=== PATIENT | female | born 1955 | race Caucasian/White ===

== ENCOUNTER 2018-03-17 11:34 | Inpatient (IN) | payer MEDICARE ==
[~2018-03-17] VITALS: Ht 167.6 cm; Wt 71.2 kg
[~2018-03-17 11:34] MED LIST: ALDACTONE25 MG PO; ASPIRIN325 MG PO; CARAFATE1 GM PO; COLESTIPOL HCL1 GM PO; DICYCLOMINE HCL20 MG PO; DIFLUCAN100 MG; ERYTHROMYCIN500 MG PO; GABAPENTIN100 MG PO; MIDODRINE HCL2.5 MG PO; NEXIUM40 MG PO; NORCO 10-325 T1 EACH PO; OMEPRAZOLE40 MG PO; PANTOPRAZOLE SO40 MG PO; PROMETHAZINE HC25 M1 PO; REGLAN10 MG PO; SERTRALINE HCL50 MG PO; SUCRALFATE1 GM PO; XANAX0.25 MG PO; XOPENEX HFA15 G1 INH; Z.0.NEXIUM40 MG PO; Z.0.REGLAN10 MG PO; ZOFRAN ODT4 MG PO; ZOLOFT50 MG PO
--- OUTSIDE RECORDS SUMMARY | 2018-03-17 11:38 | XMS REPORT | Clinical Summary ---
Author Author MIRANDA [employer] [facility] [employer] [facility] Address Unknown Phone Unavailable Care Team Providers Care Programming Intern Name Role Phone PCP Unavailable Allergies Active Allergy Reactions Severity Noted Date Comments Clindamycin Nausea And Vomiting 09/27/2017 Codeine Nausea And Vomiting 09/27/2017 Current Medications Prescription Sig. Disp. Refills Start End Date Status Date esomeprazole (NEXIUM) 20 Take 40 mg by mouth 2 Active MG capsule (two) times daily . dicyclomine (BENTYL) 10 Take 10 mg by mouth 4 Active MG capsule (four) times daily before meals and nightly. metoclopramide HCl Take 10 mg by mouth 4 Active (REGLAN) 10 MG tablet (four) times daily as needed for Nausea. sucralfate (CARAFATE) 1 Take 1 g by mouth 4 Active gram tablet (four) times daily. promethazine (PHENERGAN) Take 25 mg by mouth every Active 25 MG tablet 6 (six) hours as needed for Nausea. sertraline (ZOLOFT) 50 MG Take 50 mg by mouth Active tablet nightly. gabapentin (NEURONTIN) Take 100 mg by mouth Active 100 MG capsule nightly. ondansetron (ZOFRAN) 8 MG Take by mouth every 8 Active tablet (eight) hours as needed for Nausea. diphenoxylate-atropine Take 1 tablet by mouth 4 Active (LOMOTIL) 2.5-0.025 mg (four) times daily as per tablet needed for Diarrhea. topiramate (TOPAMAX) 25 Take 25 mg by mouth 2 Active MG capsule (two) times daily as needed. Active Problems Not on file Encounters Date Type Specialty Care Team Description 09/27/2017 Hospital Gastroenterology Frank Rey MD Encounter 09/27/2017 Anesthesia Gastroenterology Ricki Valle Event MD 09/27/2017 Procedure Pass Gastroenterology 09/27/2017 Surgery Gastroenterology Frank Rey MD SIGMOIDOSCOPY, BIOPSY after 03/16/2017 Social History Tobacco Use Types Packs/Day Years Used Date Never Smoker Smokeless Tobacco: Never Used Alcohol Use Drinks/Week oz/Week Comments No Sex Assigned at Date Recorded Not on file Last Filed Vital Signs Vital Sign Reading Time Taken Blood Pressure 133/69 09/27/2017 11:15 AM [employer] Pulse 74 09/27/2017 10:45 AM [employer] Temperature 36.3 C (97.3 F) 09/27/2017 11:15 AM [employer] Respiratory Rate 18 09/27/2017 11:15 AM [employer] Oxygen Saturation 100% 09/27/2017 10:45 AM [employer] Inhaled Oxygen - - Concentration Weight 67.1 kg (148 lb) 09/27/2017 10:14 AM [employer] Height 167.6 cm (5' 6") 09/27/2017 9:54 AM [employer] Body Mass Index 23.89 09/27/2017 10:14 AM [employer] Plan of Treatment Not on file Procedures Procedure Name Priority Date/Time Associated Diagnosis Comments UPPER ENDOSCOPY,BIOPSY 09/27/2017 Abdominal pain, 10:30 AM [employer] unspecified abdominal location Special Needs (LINEAR SCOPE) UPPER ENDOSCOPY,FNA 09/27/2017 Abdominal pain, W/ULTRASOUND 10:30 AM [employer] unspecified abdominal location Special Needs (LINEAR SCOPE) SIGMOIDOSCOPY,BIOPSY 09/27/2017 Abdominal pain, 10:30 AM [employer] unspecified abdominal location Special Needs (LINEAR SCOPE) after 03/16/2017 Results * REPORT OF PROCEDURE - ENDOSCOPY URL (09/27/2017 11:37 AM) Only the most recent of 2 results within the time period is included. * Tissue Exam (09/27/2017 10:17 AM) Component Value Ref Range Case Report Surgical Pathology Report Case: [id number] Authorizing Provider: Frank Rey MD Collected: 09/27/2017 1017 Ordering Location: [facility] Endoscopy Received: 09/27/2017 1350 Services Pathologist: Myrna Bermudez MD Specimens: A) - Duodenum, Bx Duodenum B) - Stomach, Bx Stomach C) - Large Intestine, Colon - Sigmoid, Bx Sigmoid DIAGNOSIS A. DUODENUM, BIOPSY: - DUODENAL MUCOSA WITH NO SIGNIFICANT PATHOLOGIC CHANGES - NEGATIVE FOR VILLOUS BLUNTING - NEGATIVE FOR SIGNIFICANT INCREASE OF INTRAEPITHELIAL LYMPHOCYTES B. STOMACH, BIOPSY: - CHRONIC FOCALLY ACTIVE GASTRITIS AND FEATURES SUGGESTIVE OF REACTIVE GASTOPATHY - NEGATIVE FOR HELICOBACTER PYLORI BY WARTHIN STARRY - NEGATIVE FOR METAPLASIA, DYSPLASIA AND CARCINOMA C. COLON, SIGMOID, BIOPSY: - NO SIGNIFICANT PATHOLOGIC CHANGES - NEGATIVE FOR LYMPHOCYTIC OR COLLAGENOUS COLIITIS Signing Pathologist Direct Phone Line: [phone] CPT Code(s) 00800 [id number] CLINICAL HISTORY Abdominal pain, diarrhea SPECIMEN SOURCE A. Duodenum biopsy B. Stomach biopsy C. Sigmoid colon biopsy GROSS DESCRIPTION Specimen is received in three containers of formalin all labeled with the patient's information. Part A labeled "duodenum biopsy" consists of three fragments of guerrero tissue ranging from 0.2 to 0.4 cm submitted A1. Part B labeled "stomach biopsy" consists of two fragments of guerrero tissue measuring 0.1 and 0.2 cm submitted B1. Part C labeled "sigmoid biopsy" consists of multiple fragments of guerrero tissue ranging from 0.1 and 0.3 cm submitted C1. / MICROSCOPIC DESCRIPTION A. Section shows multiple pieces of duodenal mucosa with with preserved villous architecture. There is mild submucosal congestion present. There is no significant active inflammation, pyloric metaplasia, intraepithelial lymphocytosis or malignancy. No granulomas are seen. There are plasma cells present in the lamina propria. No parasites are present. B. Performed C. Section shows pieces of unremarkable colonic mucosa with preserved crypt architecture. Specifically, no active inflammation, intraepithelial lymphocytosis or thickened subepithelial collagen band is seen. No viral inclusions are seen. No features suggestive of amyloid deposition are noted. No parasites are seen. No dysplasia or carcinoma is present. SPECIAL STUDIES The following special studies were performed on this case and the interpretation is incorporated in the diagnostic report above: The immunohistochemistry test was developed and its performance characteristics determined by [facility], Pathology Laboratory. It has not been cleared or approved by the U.S. Food and Drug Administration. The FDA has determined that such clearance or approval is not necessary. The test is used for clinical purposes. It should not be regarded as investigational or for research. This laboratory is certified under the Clinical Laboratory Improvement Amendments of 1988 (CLIA-88) as qualified to perform high complexity clinical laboratory testing. Specimen Performing Laboratory Tissue - Duodenum; Tissue [facility] - Stomach; Tissue - Large [address] [place] [address] Intestine, [place] [address] Sigmoid after 03/16/2017
--- OUTSIDE RECORDS SUMMARY | 2018-03-17 11:38 | XMS REPORT ---
Author Author [facility] Address Unknown Phone Unavailable Care Team Providers Care Swinging Cut Off Saw Operator Name Role Phone FRANK REY Unavailable Unavailable MIGUEL MALCOLM Unavailable Unavailable ARNULFO HAJI Unavailable Unavailable Problems This patient has no known problems. Allergies, Adverse Reactions, Alerts This patient has no known allergies or adverse reactions. Medications This patient has no known medications. Results Test Description Test Time Test Comments Text Results Atomic Results Result Comments TISSUE EXAM 2017-10-01 15:27:00 Surgical Pathology Report Case: [id number] Authorizing Provider: Frank Rey MD Collected: 09/27/2017 1017 Ordering Location: [facility] Endoscopy Received: 2016 1350 Services Pathologist: Myrna Bermudez MD Specimens: A) - Duodenum, Bx Duodenum B) - Stomach, Bx Stomach C) - Large Intestine, Colon - Sigmoid, Bx Sigmoid A. DUODENUM, BIOPSY: - DUODENAL MUCOSA WITH NO SIGNIFICANT PATHOLOGIC CHANGES - NEGATIVE FOR VILLOUS BLUNTING - NEGATIVE FOR SIGNIFICANT INCREASE OF INTRAEPITHELIAL LYMPHOCYTESB. STOMACH, BIOPSY: - CHRONIC FOCALLY ACTIVE GASTRITIS AND FEATURES SUGGESTIVE OF REACTIVE GASTOPATHY - NEGATIVE FOR HELICOBACTER PYLORI BY WARTHIN STARRY - NEGATIVE FOR METAPLASIA, DYSPLASIA AND CARCINOMA C. COLON , SIGMOID, BIOPSY: - NO SIGNIFICANT PATHOLOGIC CHANGES - NEGATIVE FOR LYMPHOCYTIC OR COLLAGENOUS COLIITIS Signing Pathologist Direct Phone Line: [phone] signed by Myrna Bermudez MD on 10/01/2017 at 3:27 [id number] pain, diarrheaA. Duodenum biopsy B. Stomach biopsy C. Sigmoid colon biopsy Specimen is received in three containers of formalin all labeled with the patient's information.Part A labeled "duodenum biopsy" consists of three fragments of guerrero tissue ranging from 0.2 to 0.4 cm submitted A1.Part B labeled "stomach biopsy" consists of two fragments of guerrero tissue measuring 0.1 and 0.2 cm submitted B1.Part C labeled "sigmoid biopsy" consists of multiple fragments of guerrero tissue ranging from 0.1 and 0.3 cm submitted C1. CG/bc A. Section shows multiple pieces of duodenal mucosa with with preserved villous architecture. There is mild submucosal congestion present. There is no significant active inflammation, pyloric metaplasia, intraepithelial lymphocytosis or malignancy. No granulomas are seen. There are plasma cells present in the lamina propria. No parasites are present. B. PerformedC. Section shows pieces of unremarkable colonic mucosa with preserved crypt architecture. Specifically, no active inflammation, intraepithelial lymphocytosis or thickened subepithelial collagen band is seen. No viral inclusions are seen. No features suggestive of amyloid deposition are noted. No parasites are seen. No dysplasia or carcinoma is present.The following special studies were performed on this case and the interpretation is incorporated in the diagnostic report above:The immunohistochemistry test was developed and its performance characteristics determined by [facility], Pathology Laboratory. It has not been cleared or approved by the U.S. Food and Drug Administration. The FDA has determined that such clearance or approval is not necessary. The test is used for clinical purposes. It should not be regarded as investigational or for research. This laboratory is certified under the Clinical Laboratory Improvement Amendments of 1988 (CLIA-88 ) as qualified to perform high complexity clinical laboratory testing. MRI ABDOMEN WOW [place] [address] Patient Name: ILEANA GATICA MR #: [id number] : 1955 Age/Sex: 61/F Req # : [id number] Adm Physician: Ordered by: MIGUEL MALCOLM MD Report #: [id number] Location: MRI Room/Bed: Procedure: MRI/MRI ABDOMEN WOW Exam Date: 06/23/17 Exam Time: 1620 REPORT STATUS: Signed PROCEDURE: MRI ABDOMEN W T W/O CONTRAST COMPARISON: MRI abdomen 06/06/2015. CT abdomen pelvis 2014 INDICATIONS: Abdominal pain. Right upper quadrant pain. TECHNIQUE: A comprehensive examination was performed utilizing a variety of imaging planes and imaging parameters to optimize visualization of suspected pathology. Images were obtained both before and after intravenous gadolinium infusion. CONTRAST: 6.5 ml Gadavist FINDINGS: LIVER: Unchanged pneumobilia predominantly involving left hepatic lobe, likely related to cholecystectomy and sphincterotomy. No focal lesions. PANCREAS: Normal. SPLEEN: Normal. KIDNEYS: Normal. ADRENALS: Normal. AORTA/VASCULAR: Mild atherosclerotic calcifications. RETROPERITONEUM: Normal. BOWEL/MESENTERY: Postoperative changes at the gastric fundus, consistent with fundoplication wrap. ABDOMINAL WALL: Normal. BONES: Normal. CONCLUSION: 1. No acute abnormalities identified. 2. No change in pneumobilia related to previous cholecystectomy and likely sphincterotomy. 3. Postoperative changes of the stomach consistent with a fundoplication wrap. Dictated by: Tyrel Artis M.D. on at 17:18 Electronically approved by: Tyrel Artis M.D. on 2016 at 17:18 Dictated By: TYREL ARTIS MD 17 Transcribed By: NAOMI on 06/23/171717 COPY TO: MIGUEL MALCOLM MD CT ABDOMEN/PELVIS [place] [address] Patient Name: ILEANA GATICA MR #: [id number] : 1955 Age/Sex: 61/F Req #: [id number] Adm Physician: Ordered by: ARNULFO HAJI MD Report #: [id number] Location: ER Room/Bed: Procedure: [id number] CT/CT ABDOMEN/PELVIS WO Exam Date: 06/08/17 Exam Time: 1225 REPORT STATUS: Signed PROCEDURE: CT ABDOMEN AND PELVIS WITHOUT CONTRAST TECHNIQUE: The abdomen and pelvis were scanned utilizing a multidetector helical scanner from the diaphragm to the lesser trochanter. No IV contrast was administered as per physician request. Coronal and sagittal multiplanar reformations were obtained. COMPARISON: CT abdomen and pelvis 04/29/2017. INDICATIONS: RIGHT FLANK PAIN FINDINGS: ABSENCE OF INTRAVENOUS CONTRAST DECREASES SENSITIVITY FOR DETECTION OF FOCAL LESIONS AND VASCULAR PATHOLOGY. LOWER THORAX: Normal. HEPATOBILIARY: No focal hepatic lesions. No biliary ductal dilatation. Cholecystectomy. Pneumobilia is present, minimally increased since the previous examination. SPLEEN: No splenomegaly. PANCREAS: No focal masses or ductal dilatation. ADRENALS: No adrenal nodules. KIDNEYS /URETERS: No hydronephrosis, stones, or solid mass lesions. PELVIC ORGANS/ BLADDER: Hysterectomy. No ovaries are visualized. Normal urinary bladder. PERITONEUM / RETROPERITONEUM: No free air or fluid. LYMPH NODES: No lymphadenopathy. VESSELS: Atherosclerotic calcifications. GI TRACT: No distention or wall thickening. No appendix is visualized. Postoperative changes of the stomach. Moderate amount of retained feces limit intraluminal evaluation of the colon. BONES AND SOFT TISSUES: Degenerative changes of the lumbar spine. Postoperative changes of left total hip arthroplasty. IMPRESSION: No acute abnormality of the abdomen and pelvis. Pneumobilia. Dictated by: Roxanne Whitfield M.D. on 06/08/2017 at 13:23 Electronically approved by: Roxanne Whitfield M.D. on 06/08/2017 at 13:23 Dictated By: ROXANNE WHITFIELD MD 1323 Transcribed By: NAOMI on 06/08/17 1323 COPY TO: ARNULFO HAJI MD ABDOMEN ACUTE SERIES W/PA CXR [place] [address] Patient Name: ILEANA GATICA MR #: [id number] : 1955 Age/Sex: 61/F Req #: [id number] Adm Physician: Ordered by: ARNULFO HAJI MD Report #: [id number] Location: ER Room/Bed: Procedure: [id number] DX/ABDOMEN ACUTE SERIES W/PA CXR Exam Date: 06/08/17 Exam Time: 1110 REPORT STATUS: Signed PROCEDURE : ABDOMEN ACUTE SERIES W/PA CXR COMPARISON: Small bowel follow-through . CT abdomen and pelvis 04/29/2017. Portable chest 06/03/2016. INDICATIONS: NAUSEA,DIARRHEA FINDINGS: CHEST: Scarring is present in the left lung base. Cardiomediastinal silhouette is within normal limits. No focal consolidation or parenchymal mass. No pleural effusion. No pneumothorax. BOWEL PATTERN: No air-fluid levels or pneumoperitoneum. Soft tissues: Postoperative changes in the epigastric region. Cholecystectomy clips. No abnormal calcifications. BONES: Degenerative changes of the thoracic and lumbar spine. The left hip arthroplasty. CONCLUSION: 1. No acute thoracic abnormality. 2. No evidence of bowel obstruction. Dictated by: Roxanne Whitfield M.D. on 06/08/2017 at 11:40 Electronically approved by: Roxanne Whitfield M.D. on 06/08/2017 at 11:40 Dictated By: ROXANNE WHITFIELD MD 1140 Transcribed By: NAOMI on 06/08/17 1140 COPY TO: ARNULFO HAJI MD
[2018-03-17] MEDS ORDERED: PANTOPRAZOLE 40 MG 10ML VIAL IV STA (12:03)
[2018-03-17] MEDS ORDERED: SODIUM CHLORIDE 0.9% 1000ML 1,000 ML IV STA ×2 (12:03→15:18)
[2018-03-17 12:50] LABS: BILIRUBIN,URINE NEGATIVE (NEGATIVE); CLARITY,URINE CLEAR (CLEAR); COLOR,URINE YELLOW (YELLOW); KETONES,URINE NEGATIVE (NEGATIVE); LEUKOCYTE ESTERASE ,URINE TRACE (NEGATIVE); NITRITE,URINE NEGATIVE (NEGATIVE); PROTEIN,URINE DIPSTICK NEGATIVE (NEGATIVE); URINE UROBILINOGEN 0.2 mg/dL (0.2 - 1)
[2018-03-17] MEDS: DONNATAL/LIDOCAINE/MAALOX 30 ML SUSP PO SCH ×2 (12:58→21:00)
[2018-03-17 13:16] LABS: BASOPHILS % 0.7 % (0.0-1.0); EOSINOPHILS % 0.7 % (0.0-6.0); HEMATOCRIT 40.2 % (34.2-44.1); HEMOGLOBIN 13.7 g/dL (12.0-16.0); LYMPHOCYTES # (AUTO) 1.7 (1.0-3.2); LYMPHOCYTES % 38.2 % (18.0-39.1); MEAN CORPUSCULAR HEMOGLOBIN 33.6 pg (28-32); MEAN CORPUSCULAR HGB CONC 34.1 g/dL (31-35); MEAN CORPUSCULAR VOLUME 98.5 fL (81-99); MONOCYTES # (AUTO) 0.4 (0.2-0.8); MONOCYTES % 8.3 % (4.4-11.3); NEUTROPHILS # (AUTO) 2.3 (2.1-6.9); NEUTROPHILS % 51.9 % (38.7-80.0); PLATELET COUNT 183 x10e3/uL (140-360); RED BLOOD COUNT 4.08 x10e6/uL (3.6-5.1)
[2018-03-17 13:22] LABS: INR 1.07; PROTHROMBIN TIME 13.1 seconds (11.9-14.5)
[2018-03-17 13:23] LABS: PARTIAL THROMBOPLASTIN TIME 28.8 seconds (23.8-35.5)
[2018-03-17 13:31] LABS: ALANINE AMINOTRANSFERASE 19 IU/L (0-55); ALBUMIN/GLOBULIN RATIO 1.4 (0.8-2.0); ALKALINE PHOSPHATASE 93 IU/L (40-150); AMYLASE 54 U/L (25-125); ANION GAP 10.1 mmol/L (8-16); BLOOD UREA NITROGEN 5 mg/dL (7-26); BUN/CREATININE RATIO 7 (6-25); CALCIUM 9.7 mg/dL (8.4-10.2); CARBON DIOXIDE 30 mmol/L (22-29); CHLORIDE 102 mmol/L (98-107); CHOLESTEROL 254 MD/DL (0-199); CREATINE KINASE 48 IU/L (29-168); CREATININE, SERUM 0.72 mg/dL (0.57-1.11); EST GLOMERULAR FILTRATION RATE > 60 ML/MIN (60-); GLUCOSE 90 mg/dL (74-118); HDL CHOLESTEROL 64 MG/DL (40-60); LIPASE 26 U/L (8-78); POTASSIUM 4.1 mmol/L (3.5-5.1); SODIUM 138 mmol/L (136-145)
[2018-03-17 13:32] LABS: EPITHELIAL CELLS,URINE RARE /LPF
[2018-03-17 13:41] LABS: LDL CHOLESTEROL 156 MG/DL (60-130); TRIGLYCERIDES 170 MG/DL (0-149)
--- NOTE | 2018-03-17 14:29 | Diagnostic Imaging Report ---
PROCEDURE: CHEST SINGLE (PORTABLE) COMPARISON: CT abdomen and pelvis without contrast 06/08/2017. Acute abdominal series 06/08/2017. INDICATIONS: EPIGATSRIC PAIN. COUGH FINDINGS: The lungs are well-inflated. Blunting of the left lateral costophrenic sulcus likely related to chronic pleural thickening as seen on comparison CT. No airspace consolidation. No pneumothorax. Tortuous thoracic aorta with otherwise normal cardiomediastinal contour. Postsurgical changes of the proximal stomach are seen to better advantage on comparison CT from May 2017. No acute osseous abnormality. CONCLUSION: No acute cardiopulmonary abnormality. Dictated by: Chuck Maldonado M.D. on 03/17/2018 at 14:33 Electronically approved by: Chuck Maldonado M.D. on 03/17/2018 at 14:33
[2018-03-17] MEDS ORDERED: MORPHINE SULFATE 2 MG/ML SYR IV ONE (14:53)
[2018-03-17] MEDS ORDERED: ONDANSETRON HCL 4 MG ORAL DISINTEGRATING TAB PO ONE (15:00)
[2018-03-17] MEDS ORDERED: PANTOPRAZOLE 40 MG 10ML VIAL IV SCH (15:30)
--- NOTE | 2018-03-17 16:40 | Diagnostic Imaging Report ---
PROCEDURE:CT ABDOMEN AND PELVIS WITH CONTRAST COMPARISON:[facility], CT, CT ABDOMEN/PELVIS W, 04/29/2017, 13:59. INDICATIONS:ABDOMINAL PAIN TECHNIQUE: Multidetector CT scanning of the abdomen and pelvis was performed after the administration 100 cc of ionic contrast. Coronal and sagittal reformations were obtained. Routine protocol performed. FINDINGS: Lung bases: A mild bibasilar atelectasis. There are stable postoperative changes of the GE junction suggestive of fundoplication. The heart is normal in size. No pericardial or pleural effusions. Liver: No mass. The parenchyma is mildly decreased in attenuation suggestive of steatosis. The right lobe measures 17 cm in length. Biliary: The gallbladder is absent. Pneumobilia is re-demonstrated. No filling defects in common bile duct. Spleen: Normal size and attenuation without mass Pancreas: Diffuse fatty atrophy. No mass or ductal dilatation. Adrenal Glands: No mass Kidneys: Symmetric enhancement. No hydronephrosis. No cortical mass. Gastrointestinal: The stomach is collapsed. Small bowel loops in the proximal jejunum measure up to 3.2 cm in diameter and are distended with air. No pneumatosis. No clear transition point. Other small bowel loops are collapsed. No fecalized enteric contents. Mild burden of stool and fluid in the large bowel. No pericolonic inflammation. The cecum is distended with air and fluid. The appendix is nonvisualized and may be absent or collapsed. Vasculature: Calcifications throughout the aorta without aneurysmal dilatation. Portal vein measures 17 mm in diameter. No filling defects. Peritoneum/Retroperitoneum: No free fluid or fluid collection. No free air Bladder: Well-distended and is normal. No ureteral dilatation. Reproductive organs: The uterus is absent. There are no adnexal masses. Musculoskeletal: Left hip prosthesis is present in anatomic alignment associated fracture or lucency to suggest loosening. A bone island in the sacrum is stable. There are mild degenerative changes of the spine. Mild wedging of the L1 vertebral body is stable. 2 soft tissue nodules have developed in the left breast, measuring 1.3 x 1.7 cm and 0.9 x 0.9 cm. No calcifications. CONCLUSION: 1. Distended small bowel loops are suggestive of severe ileus or very low-grade partial small bowel obstruction. 2. Stable postoperative changes. Stable pneumobilia. 3. Mild hepatomegaly and hepatic steatosis. 4. Soft tissue nodules in the left breast should be further evaluated with mammography and ultrasound. Dictated by: Nelida Troncoso M.D. on 03/17/2018 at 16:43 Electronically approved by: Nelida Troncoso M.D. on 03/17/2018 at 16:43
[2018-03-17] MEDS: SODIUM CHLORIDE 0.9% 1000ML 1,000 ML IV SCH (18:23)
[2018-03-17] MEDS ORDERED: PROPRANOLOL HCL60 MG (18:28)
[2018-03-17] MEDS ORDERED: PRIMIDONE50 MG (18:30)
--- OUTSIDE RECORDS SUMMARY | 2018-03-17 18:46 | XMS REPORT | Clinical Summary ---
Author Author MIRANDA [employer] [facility] [employer] [facility] Address Unknown Phone Unavailable Care Team Providers Care Resident Care Associate Name Role Phone PCP Unavailable Allergies Active [...] Taken Blood Pressure 133/69 09/27/2017 11:15 AM B[employer] OPENER Pulse 74 09/27/2017 10:45 AM [employer]ENER Temperature 36.3 C (97.3 F) 09/27/2017 11:15 AM BALE OPENER Respiratory Rate 18 09/27/2017 11:15 AM BALE OPENER Oxygen Saturation 100% 09/27/2017 10:45 AM B[employer] OPENER Inhaled Oxygen - - Concentration Weight 67.1 kg (148 lb) 09/27/2017 10:14 AM BALE OPENER Height 167.6 cm (5' 6") 09/27/2017 9:54 AM B[employer]ENER Body Mass Index 23.89 09/27/2017 10:14 AM BALE OPENER Plan of Treatment Not on file Procedures Procedure Name Priority Date/Time Associated Diagnosis Comments UPPER ENDOSCOPY,BIOPSY 09/27/2017 Abdominal pain, 10:30 AM BALE OPENER unspecified abdominal location Special Needs (LINEAR SCOPE) UPPER ENDOSCOPY,FNA 09/27/2017 Abdominal pain, W/ULTRASOUND 10:30 AM BALE OPENER unspecified abdominal location Special Needs (LINEAR SCOPE) SIGMOIDOSCOPY,BIOPSY 09/27/2017 Abdominal pain, 10:30 AM BALE OPENER unspecified abdominal location Special Needs (LINEAR SCOPE) after 03/16/2017 Results * REPORT OF PROCEDURE - ENDOSCOPY URL (09/27/2017 11:37 AM) Only the most recent of 2 results within the time period is included. * Tissue Exam (09/27/2017 10:17 AM) Component Value Ref Range Case Report Surgical Pathology Report Case: [id number] Authorizing Provider: Frank Rey MD Collected: 09/27/2017 1017 Ordering Location: [facility] Endoscopy Received: 09/27/2017 1350 Services Pathologist: Myrna [...] COLLAGENOUS COLIITIS Signing Pathologist Direct Phone Line: [phone] CPT Code(s) 56371 [id number] CLINICAL HISTORY Abdominal pain, diarrhea SPECIMEN SOURCE A. Duodenum biopsy B. Stomach biopsy C. Sigmoid colon biopsy GROSS DESCRIPTION Specimen is received in three containers of formalin all labeled with the patient's information. Part A labeled "duodenum biopsy" consists of three fragments of guerrero tissue ranging from 0.2 to 0.4 cm submitted A1. Part B labeled "stomach biopsy" consists of two fragments of guerrreo tissue measuring 0.1 and 0.2 cm submitted [...] developed and its performance characteristics determined by [facility], Pathology Laboratory. It has not been cleared [...] Specimen Performing Laboratory Tissue - Duodenum; Tissue [facility] - Stomach; Tissue - Large [address] [place] [address] Intestine, [place] [address] Sigmoid after 03/16/2017
[2018-03-17] MEDS: MORPHINE SULFATE 2 MG/ML SYR IV PRN ×2 (18:50→22:52)
[2018-03-17 19:15] VITALS: BP 122/64
[2018-03-17] MEDS ORDERED: SODIUM CHLORIDE 0.9% 50ML 50 ML ONE (19:20)
[2018-03-17] MEDS ORDERED: IOPAMIDOL 370 MG/ML 200 ML INFUS..BTL INJ ONE (19:20)
[2018-03-18] MEDS: SODIUM CHLORIDE 0.9% 1000ML 1,000 ML IV SCH ×4 (01:55→19:26)
[2018-03-18] MEDS: MORPHINE SULFATE 2 MG/ML SYR IV PRN ×5 (03:08→19:45)
[2018-03-18 03:34] VITALS: BP 106/55
[2018-03-18 06:20] LABS: BASOPHILS % 0.4 % (0.0-1.0); EOSINOPHILS % 0.9 % (0.0-6.0); HEMATOCRIT 34.7 % (34.2-44.1); HEMOGLOBIN 11.4 g/dL (12.0-16.0); LYMPHOCYTES # (AUTO) 2.2 (1.0-3.2); LYMPHOCYTES % 48.7 % (18.0-39.1); MEAN CORPUSCULAR HEMOGLOBIN 33.5 pg (28-32); MEAN CORPUSCULAR HGB CONC 32.9 g/dL (31-35); MEAN CORPUSCULAR VOLUME 102.1 fL (81-99); MONOCYTES # (AUTO) 0.4 (0.2-0.8); MONOCYTES % 8.7 % (4.4-11.3); NEUTROPHILS # (AUTO) 1.9 (2.1-6.9); NEUTROPHILS % 41.1 % (38.7-80.0); PLATELET COUNT 140 x10e3/uL (140-360)
[2018-03-18 06:38] LABS: ANION GAP 8.7 mmol/L (8-16); BLOOD UREA NITROGEN 5 mg/dL (7-26); BUN/CREATININE RATIO 7 (6-25); CALCIUM 8.3 mg/dL (8.4-10.2); CARBON DIOXIDE 29 mmol/L (22-29); CHLORIDE 109 mmol/L (98-107); CREATININE, SERUM 0.71 mg/dL (0.57-1.11); EST GLOMERULAR FILTRATION RATE > 60 ML/MIN (60-); GLUCOSE 82 mg/dL (74-118); POTASSIUM 3.7 mmol/L (3.5-5.1); SODIUM 143 mmol/L (136-145)
[2018-03-18] MEDS: ONDANSETRON HCL INJ 2 MG/ML VIAL IV PRN ×2 (07:11→15:45)
[2018-03-18 08:30] VITALS: BP 114/58
[2018-03-18] MEDS: DONNATAL/LIDOCAINE/MAALOX 30 ML SUSP PO SCH ×3 (08:47→20:58)
[2018-03-18 12:45] VITALS: BP 125/63
[2018-03-18] MEDS: PANTOPRAZOLE 40 MG 10ML VIAL IV SCH (13:52)
[2018-03-18 16:30] VITALS: BP 116/62
[2018-03-18] MEDS: METOCLOPRAMIDE HCL 10 MG/2ML VIAL IV SCH ×2 (17:51→23:12)
[2018-03-18] MEDS: MIDODRINE 2.5 MG TAB PO SCH (17:51)
[2018-03-18] MEDS: PRIMIDONE 50 MG TAB PO SCH (20:58)
[2018-03-18] MEDS: SERTRALINE HCL 50 MG TAB PO SCH (20:58)
[2018-03-19] VITALS (8 sets, daily range): BP systolic 114–139; BP diastolic 56–69
[2018-03-19] MEDS: MORPHINE SULFATE 2 MG/ML SYR IV PRN ×6 (00:15→21:20)
[2018-03-19] MEDS: SODIUM CHLORIDE 0.9% 1000ML 1,000 ML IV SCH ×2 (05:33→16:06)
[2018-03-19] MEDS: METOCLOPRAMIDE HCL 10 MG/2ML VIAL IV SCH ×3 (05:55→17:26)
--- NOTE | 2018-03-19 06:47 | Diagnostic Imaging Report ---
ABDOMEN COMP INCL UPR or DECUB Clinical history: Abdominal pain Technique: AP view abdomen, supine and upright Comparison: CT 01/12/2015 Findings: Bibasilar atelectasis/scarring is noted. Status post cholecystectomy with pneumobilia. Clips and suture material overlie the left upper quadrant. Mild gaseous distention of the colon which is stool-filled. No evidence of free air. Partially imaged left hip arthroplasty. Impression: Mildly dilated stool filled colon. Signed by: Dr Jossy Sánchez MD on 03/19/2018 6:43 AM
[2018-03-19] MEDS: DONNATAL/LIDOCAINE/MAALOX 30 ML SUSP PO SCH ×3 (08:34→21:18)
[2018-03-19] MEDS: PROPRANOLOL HCL 60 MG ER CAP PO SCH (08:34)
[2018-03-19] MEDS: PANTOPRAZOLE 40 MG 10ML VIAL IV SCH (08:34)
[2018-03-19] MEDS: MIDODRINE 2.5 MG TAB PO SCH ×2 (08:34→17:00)
[2018-03-19] MEDS ORDERED: BISACODYL 10 MG SUPP PR NR (11:00)
[2018-03-19] MEDS ORDERED: BISACODYL 10 MG SUPP PR PRN (11:00)
[2018-03-19] MEDS: SENNA-S TABLET PO SCH ×2 (13:16→17:26)
[2018-03-19] MEDS: SERTRALINE HCL 50 MG TAB PO SCH (21:18)
[2018-03-19] MEDS: PRIMIDONE 50 MG TAB PO SCH (21:18)
[2018-03-20] MEDS: METOCLOPRAMIDE HCL 10 MG/2ML VIAL IV SCH ×5 (00:27→23:09)
[2018-03-20] MEDS: SODIUM CHLORIDE 0.9% 1000ML 1,000 ML IV SCH ×3 (01:26→21:54)
[2018-03-20] MEDS: MORPHINE SULFATE 2 MG/ML SYR IV PRN ×6 (01:30→23:02)
[2018-03-20 05:48] LABS: BASOPHILS % 0.6 % (0.0-1.0); EOSINOPHILS # (AUTO) 0.1 (0.0-0.4); EOSINOPHILS % 2.2 % (0.0-6.0); HEMATOCRIT 35.3 % (34.2-44.1); HEMOGLOBIN 11.8 g/dL (12.0-16.0); LYMPHOCYTES # (AUTO) 1.8 (1.0-3.2); LYMPHOCYTES % 39.6 % (18.0-39.1); MEAN CORPUSCULAR HEMOGLOBIN 33.4 pg (28-32); MEAN CORPUSCULAR HGB CONC 33.4 g/dL (31-35); MONOCYTES # (AUTO) 0.5 (0.2-0.8); MONOCYTES % 10.8 % (4.4-11.3); NEUTROPHILS # (AUTO) 2.2 (2.1-6.9); NEUTROPHILS % 46.4 % (38.7-80.0); PLATELET COUNT 144 x10e3/uL (140-360); RED BLOOD COUNT 3.53 x10e6/uL (3.6-5.1); RED CELL DISTRIBUTION WIDTH 11.7 % (11.7-14.4)
[2018-03-20 06:11] LABS: ALANINE AMINOTRANSFERASE 17 IU/L (0-55); ALBUMIN 3.2 g/dL (3.5-5.0); ALBUMIN/GLOBULIN RATIO 1.3 (0.8-2.0); ALKALINE PHOSPHATASE 81 IU/L (40-150); ANION GAP 11.2 mmol/L (8-16); BLOOD UREA NITROGEN < 5 mg/dL (7-26); BUN/CREATININE RATIO 8 (6-25); CALCIUM 8.8 mg/dL (8.4-10.2); CARBON DIOXIDE 29 mmol/L (22-29); CHLORIDE 108 mmol/L (98-107); CREATININE, SERUM 0.66 mg/dL (0.57-1.11); EST GLOMERULAR FILTRATION RATE > 60 ML/MIN (60-); GLUCOSE 86 mg/dL (74-118); POTASSIUM 4.2 mmol/L (3.5-5.1); SODIUM 144 mmol/L (136-145)
[2018-03-20 08:00] VITALS: BP 119/59
[2018-03-20 08:04] LABS: FOLATE 33.8 ng/mL (7.0-15.4)
[2018-03-20] MEDS: PANTOPRAZOLE 40 MG 10ML VIAL IV SCH (09:09)
[2018-03-20] MEDS: DONNATAL/LIDOCAINE/MAALOX 30 ML SUSP PO SCH ×3 (09:09→20:18)
[2018-03-20] MEDS: PROPRANOLOL HCL 60 MG ER CAP PO SCH (09:15)
[2018-03-20] MEDS: SENNA-S TABLET PO SCH ×2 (09:16→16:51)
[2018-03-20] MEDS: MIDODRINE 2.5 MG TAB PO SCH ×2 (09:16→16:51)
[2018-03-20 11:28] VITALS: BP 114/78
[2018-03-20 16:00] VITALS: BP 114/60
[2018-03-20 19:53] VITALS: BP 93/51
[2018-03-20 19:55] VITALS: BP 93/51
[2018-03-20] MEDS: PRIMIDONE 50 MG TAB PO SCH (20:18)
[2018-03-20] MEDS: SERTRALINE HCL 50 MG TAB PO SCH (20:18)
[2018-03-20 20:50] VITALS: BP 121/59
[2018-03-21] VITALS: BP 103/53
[2018-03-21 00:02] VITALS: BP 121/59
[2018-03-21] MEDS: MORPHINE SULFATE 2 MG/ML SYR IV PRN ×2 (03:56→08:25)
[2018-03-21 04:00] VITALS: BP 111/56
[2018-03-21] MEDS: METOCLOPRAMIDE HCL 10 MG/2ML VIAL IV SCH ×2 (06:14→12:32)
[2018-03-21 08:00] VITALS: BP 114/56
[2018-03-21] MEDS: SODIUM CHLORIDE 0.9% 1000ML 1,000 ML IV SCH (08:43)
[2018-03-21] MEDS: DONNATAL/LIDOCAINE/MAALOX 30 ML SUSP PO SCH (08:43)
[2018-03-21] MEDS: PANTOPRAZOLE 40 MG 10ML VIAL IV SCH (08:43)
[2018-03-21] MEDS: MIDODRINE 2.5 MG TAB PO SCH (08:44)
[2018-03-21] MEDS: PROPRANOLOL HCL 60 MG ER CAP PO SCH (08:44)
[2018-03-21] MEDS: SENNA-S TABLET PO SCH (08:44)
--- NOTE | 2018-03-21 09:33 | Discharge Summary ---
FINAL DIAGNOSES 1. Small-bowel obstruction. 2. Constipation. 3. Dehydration. SUMMARY: A 62-year-old female with multiple surgeries with adhesions and has fundoplication. Patient came in with small-bowel obstruction associated with nausea, vomiting and dehydration. Patient is doing much better now. She did have some wound care. The patient was comfortable. At this time, she is stable. She will go home today and follow up as an outpatient. The patient will continue with home medications. Reglan 5 mg p.o. q.a.c. Senna-S 1 tablet once a day. The patient will follow up in approximately 1. Patient is stable and discharged home today. Job#: [id number] [place]
[2018-03-21 10:04] VITALS: BP 114/56
[2018-03-21 12:00] VITALS: BP 101/49
== END 2018-03-21 14:41 | disposition home or self-care (01) | DRG 390 ==
LOC: ER 11:34 → IMCU 18:44 → MED/SURG 03-20 20:35
PROVIDERS: ADMIT Internal Medicine; ATTEND Internal Medicine
DX: K56.690 Other partial intestinal obstruction (principal); K59.00 Constipation, unspecified; E86.0 Dehydration; K21.9 Gastro-esophageal reflux disease without esophagitis; K29.70 Gastritis, unspecified, without bleeding
CPT/HCPCS: 36415; 71045; 74177; 80048; 80053; 80061; 81001; 82150; 82270; 82550; 82553; 82607; 82746; 83690; 84484; 85025; 85610; 85730; 93005; 99284; J2270; J2405; J2765; J7030; Q9967

== ENCOUNTER → 2018-05-05 | Day surgery (SDC) | payer MEDICARE ==
[2018-05-03 16:17] LABS: BASOPHILS % 0.6 % (0.0-1.0); EOSINOPHILS # (AUTO) 0.1 (0.0-0.4); HEMATOCRIT 37.6 % (34.2-44.1); HEMOGLOBIN 12.7 g/dL (12.0-16.0); LYMPHOCYTES # (AUTO) 2.2 (1.0-3.2); LYMPHOCYTES % 43.2 % (18.0-39.1); MEAN CORPUSCULAR HEMOGLOBIN 33.3 pg (28-32); MEAN CORPUSCULAR HGB CONC 33.8 g/dL (31-35); MEAN CORPUSCULAR VOLUME 98.7 fL (81-99); MONOCYTES # (AUTO) 0.5 (0.2-0.8); MONOCYTES % 9.3 % (4.4-11.3); NEUTROPHILS # (AUTO) 2.4 (2.1-6.9); NEUTROPHILS % 45.5 % (38.7-80.0); PLATELET COUNT 194 x10e3/uL (140-360); RED BLOOD COUNT 3.81 x10e6/uL (3.6-5.1); RED CELL DISTRIBUTION WIDTH 12.1 % (11.7-14.4)
[2018-05-03 16:37] LABS: ANION GAP 14.9 mmol/L (8-16); BLOOD UREA NITROGEN 8 mg/dL (7-26); BUN/CREATININE RATIO 11 (6-25); CALCIUM 9.2 mg/dL (8.4-10.2); CARBON DIOXIDE 27 mmol/L (22-29); CHLORIDE 103 mmol/L (98-107); CREATININE, SERUM 0.72 mg/dL (0.57-1.11); EST GLOMERULAR FILTRATION RATE > 60 ML/MIN (60-); GLUCOSE 94 mg/dL (74-118); POTASSIUM 4.9 mmol/L (3.5-5.1); SODIUM 140 mmol/L (136-145)
[~2018-05-05] MED LIST changes: +ALBUTEROL0.63 MG/3 INH; +DEXAMETHASONE SOD PHOS INJ 4 MG/ML VIAL ONE; +FENTANYL CITRATE/PF 100MCG/2 ML INJ ONE; +HYDROMORPHONE 1MG/1ML INJ ONE; +KETOROLAC TROMETHAMINE 30 MG/ML VIAL ONE; +LIDOCAINE HCL 1% LOCAL INJ 20 ML VIAL ONE; +LIDOCAINE HCL 2% LOCAL INJ 5 ML SDV VIAL INJ ONE; +METOCLOPRAMIDE HCL 10 MG/2ML VIAL ONE; +MIDAZOLAM HCL 2 MG/2 ML VIAL ONE; +ONDANSETRON HCL INJ 2 MG/ML VIAL ONE; +PRIMIDONE50 MG; +PROPOFOL IV EMULSION 10 MG/ML 20 ML VIAL ONE; +PROPRANOLOL HCL60 MG; +SEVOFLURANE INHAL SOLN 250 ML PEN BTL ONE
--- NOTE | 2018-05-05 15:46 | Operative Report ---
DATE OF PROCEDURE: May 05, 2018 PREOPERATIVE DIAGNOSIS: Carcinoma of the left breast. POSTOPERATIVE DIAGNOSIS: Carcinoma of the left breast. PROCEDURES PERFORMED: 1. Left segmental mastectomy with preoperative needle localization. 2. Left axillary sentinel lymph node excision with lymph node mapping. GLOBAL CLIMATE CHANGE ANALYST: None. ANESTHESIA: General. INDICATIONS AND FINDINGS: The patient is a 62-year-old female who was found to have a mass in the left breast. Biopsy revealed infiltrating ductal cell carcinoma. At surgery the patient had areas of previous biopsy that were completely excised. There were 2 separate areas which were removed. Specimen x-ray confirmed removal of the localizing clips. Two sentinel nodes were excised. Both were negative for metastatic cancer on pathologic examination. TECHNIQUE: After adequate general anesthesia with the patient in supine position, the left breast and axilla were prepped and draped in sterile fashion with Oleg solution. An elliptical incision was made encompassing one of the localizing wires, carried down to the subcutaneous tissue. A section of wire was delivered into the wound. The segment of breast encompassing both wires was then excised completely down to the chest wall. Specimen x-ray confirmed removal of both clips with a good margin of tissue although a small part of the superior margin was removed for the more lateral lesion. Using the Neoprobe then through the same incision, the axilla was examined. Incision was carried out more laterally along in the breast tissue until the axilla was entered. Using the Neoprobe, 2 sentinel nodes were identified and these were both excised, submitted for pathologic examination, both of which were negative for metastatic cancer. The wound was irrigated with sterile water, inspected for hemostasis, which was seen to be adequate. A 10 mm flat Navneet-Kaufman drain was placed in the wound through a separate stab wound incision. The wound was then closed with 3-0 Vicryl in the subcutaneous tissue and areli for the skin. A sterile dressing was applied. The patient tolerated the procedure well. Estimated blood loss was 20 mL. There were no complications. All counts were correct. The patient was taken to the recovery room in satisfactory condition. Job#: [id number] EV cc:MD ROXANNE NEWMAN MD
--- NOTE | 2018-05-05 16:03 | Diagnostic Imaging Report ---
Lymphoscintigraphy Reason for Exam: Left breast cancer; scheduled for sentinel lymph node biopsy Radiopharmaceutical: Tc-99m filtered sulfur colloid 761 microcuries Report: The radiotracer was given as two separate injections intradermally at the edge of the left areola. A single focal area of markedly increased tracer accumulation is seen in the left axilla. An additional two foci of mildly increased tracer accumulation are also seen in the left axilla. No accumulation of tracer is seen in the midline of the chest or in the neck. Impression: Injection for sentinel lymph node mapping. Single sentinel lymph node is identified in the left axilla. The two additional sites of tracer accumulation in the left axilla most likely represent secondary lymph nodes given the significantly less intensity. Signed by: Dr. Bela Morales M.D. on 05/05/2018 3:59 PM
--- NOTE | 2018-05-05 16:31 | Diagnostic Imaging Report ---
PROCEDURE:BREAST SPECIMEN LT RADIOGRAPH COMPARISON:None. INDICATIONS:Lumpectomy FINDINGS: 2 views of the submitted surgical specimen. Both of the previously described left breast masses with clip markers and wire localization devices are contained within the submitted resection specimen. These findings were discussed with the surgery service at the time of interpretation. CONCLUSION: As above Dictated by: Francesco Benson M.D. on 05/05/2018 at 16:36 Electronically approved by: Francesco Benson M.D. on 05/05/2018 at 16:36
--- NOTE | 2018-05-10 18:07 | Diagnostic Imaging Report ---
#[id number] - [id number] NEEDLE LOCALIZATION: 05/05/2018 PROCEDURE DESCRIPTION: The patient had an ultrasound guided biopsy of the left 1.3 cm mass in the posterior aspect of the breast, at 1:00 5 cm from the nipple. Mammograms show a biopsy marker clip at the lesion location. Preoperative localization was requested. Written informed written consent was obtained from the patient, and a formal time out was taken to confirm patient identity and procedure to be perfomed. Using standard sterile technique, 1% lidocaine local anesthesia, and mammographic guidance, the biopsy clip/mass was preoperatively localized with a hookwire. Final CC and LM mammograms were obtained to document wire location. A sterile bandage was placed over the wire and the patient was transferred from mammography with no immediate complications noted. Correlation is made to exams dated: 04/18/2018 mammogram, 04/18/2018 ultrasound biopsy and 04/17/2018 mammogram - [facility]. IMPRESSION: NEEDLE LOCALIZATION Successful mammographic needle localization of the posterior breast mass at the 1 o'clock position. Follow-up with ACR/ACS guidelines. Yehuda Pak Jr., D.O. cw/:05/10/2018 08:57:31 [place] Worker: Bela RANGEL)([place]), [facility] [id number]
--- NOTE | 2018-05-10 18:07 | Diagnostic Imaging Report ---
#[id number] - [id number] NEEDLE LOCALIZATION: 05/05/2018 PROCEDURE DESCRIPTION: The patient had a ultrasound biopsy of the left breast, at 1:00 o'clock of the 1 cm mass 3 cm from the nipple. Mammograms show a biopsy marker clip at the lesion location. Preoperative localization was requested. Written informed written consent was obtained from the patient, and a formal time out was taken to confirm patient identity and procedure to be perfomed. Using standard sterile technique, 1% lidocaine local anesthesia, and mammographic guidance, the biopsy clip/mass was preoperatively localized with a hookwire. Final CC and LM mammograms were obtained to document wire location. A sterile bandage was placed over the wire and the patient was transferred from mammography with no immediate complications noted. Correlation is made to exams dated: 04/18/2018 mammogram, 04/18/2018 ultrasound biopsy and 04/17/2018 mammogram - [facility]. IMPRESSION: NEEDLE LOCALIZATION Successful mammographic needle localization of the mass/clip that is at 1 o'clock in the middle zone of the breast. Follow-up with ACR/ACS guidelines. Yehuda Pak Jr., D.O. cw/:05/10/2018 08:52:24 Circulation Librarian: Bela RANGEL)(M), [facility] [id number]
== END | disposition home or self-care (01) ==
LOC: NM 07:56
PROVIDERS: ATTEND Surgery
DX: C50.912 Malignant neoplasm of unspecified site of left female breast (principal); J45.909 Unspecified asthma, uncomplicated; K21.9 Gastro-esophageal reflux disease without esophagitis; I95.9 Hypotension, unspecified; Z01.810 Encounter for preprocedural cardiovascular examination; Z01.812 Encounter for preprocedural laboratory examination
CPT/HCPCS: 36415; 78195; 80048; 85025; 88172; 88173; 88305; 88307; 88309; 88331; 93005; A9541; J1100; J1170; J1885; J2001; J2250; J2405; J2765

== ENCOUNTER → 2018-06-06 | Outpatient (CLI) | payer MEDICARE ==
[~2018-06-06] MED LIST changes: +ALENDRONATE SOD70 MG PEG; -DEXAMETHASONE SOD PHOS INJ 4 MG/ML VIAL ONE; -FENTANYL CITRATE/PF 100MCG/2 ML INJ ONE; -HYDROMORPHONE 1MG/1ML INJ ONE; -KETOROLAC TROMETHAMINE 30 MG/ML VIAL ONE; -LIDOCAINE HCL 1% LOCAL INJ 20 ML VIAL ONE; -LIDOCAINE HCL 2% LOCAL INJ 5 ML SDV VIAL INJ ONE; -METOCLOPRAMIDE HCL 10 MG/2ML VIAL ONE; -MIDAZOLAM HCL 2 MG/2 ML VIAL ONE; -ONDANSETRON HCL INJ 2 MG/ML VIAL ONE; -PROPOFOL IV EMULSION 10 MG/ML 20 ML VIAL ONE; -SEVOFLURANE INHAL SOLN 250 ML PEN BTL ONE
== END ==
LOC: RAD 09:05
PROVIDERS: ATTEND Internal Medicine Medical Oncology
DX: C50.412 Malignant neoplasm of upper-outer quadrant of left female breast (principal); Z17.1 Estrogen receptor negative status [ER-]
CPT/HCPCS: 93306

== ENCOUNTER → 2018-06-09 | Day surgery (SDC) | payer MEDICARE ==
[2018-06-07 15:51] LABS: BASOPHILS % 0.6 % (0.0-1.0); EOSINOPHILS # (AUTO) 0.1 (0.0-0.4); EOSINOPHILS % 1.1 % (0.0-6.0); HEMATOCRIT 37.8 % (34.2-44.1); HEMOGLOBIN 12.7 g/dL (12.0-16.0); LYMPHOCYTES # (AUTO) 2.2 (1.0-3.2); LYMPHOCYTES % 41.1 % (18.0-39.1); MEAN CORPUSCULAR HEMOGLOBIN 33.9 pg (28-32); MEAN CORPUSCULAR HGB CONC 33.6 g/dL (31-35); MEAN CORPUSCULAR VOLUME 100.8 fL (81-99); MONOCYTES # (AUTO) 0.6 (0.2-0.8); MONOCYTES % 10.5 % (4.4-11.3); NEUTROPHILS # (AUTO) 2.5 (2.1-6.9); NEUTROPHILS % 46.3 % (38.7-80.0); PLATELET COUNT 190 x10e3/uL (140-360); RED BLOOD COUNT 3.75 x10e6/uL (3.6-5.1); RED CELL DISTRIBUTION WIDTH 12.4 % (11.7-14.4)
[2018-06-07 18:06] LABS: LYMPHOCYTES % (MANUAL) 18 % (19-48); METAMYELOCYTES % (MANUAL) 1 % (0-0); MONOCYTES % (MANUAL) 7 % (3.4-9.0); NEUTROPHILS % (MANUAL) 66 % (40-74); PLATELET ESTIMATE ADEQUATE; PLATELET MORPHOLOGY COMMENT NORMAL; POIKILOCYTOSIS SLIGHT; RBC MORPHOLOGY COMMENT NORMAL
[~2018-06-09] MED LIST changes: -ALENDRONATE SOD70 MG PEG; +ALENDRONATE SOD70 MG PO; +CEFAZOLIN SOD 2 GM/D5W 50ML 50 ML IV ONE; +DEXAMETHASONE SOD PHOS INJ 4 MG/ML VIAL ONE; +FENTANYL CITRATE/PF 100MCG/2 ML INJ ONE; +GLYCOPYRROLATE INJ 1MG/ 5 ML SYR ONE; +HEPARIN SOD (PORCINE) 1000 UNIT/ML SDV ONE; +KETOROLAC TROMETHAMINE 30 MG/ML VIAL ONE; +LIDOCAINE HCL 1% LOCAL INJ 20 ML VIAL ONE; +LIDOCAINE HCL 2% LOCAL INJ 5 ML SDV VIAL INJ ONE; +MIDAZOLAM HCL 2 MG/2 ML VIAL ONE; +MORPHINE SULFATE 2 MG/ML SYR ONE; +ONDANSETRON HCL INJ 2 MG/ML VIAL ONE; +PHENYLEPHRINE HCL 1% 10 MG/ML VIAL ONE; +PROPOFOL IV EMULSION 10 MG/ML 20 ML VIAL ONE; +SEVOFLURANE INHAL SOLN 250 ML PEN BTL ONE; +SODIUM CHLORIDE 0.9% 100 ML 100 ML ONE
--- NOTE | 2018-06-09 13:59 | Operative Report ---
DATE OF PROCEDURE: June 09, 2018 PREOPERATIVE DIAGNOSIS: Carcinoma of the left breast. POSTOPERATIVE DIAGNOSIS: Carcinoma of the left breast. OPERATIVE PROCEDURES: Placement of a right subclavian vein subcutaneous venous access port. SCIENCE INTERN: None. ANESTHESIA: General. INDICATIONS AND FINDINGS: The patient is a 62-year-old female with carcinoma of the left breast who is being treated with chemotherapy. At surgery there were no abnormalities in the area of the port placement. Tip of the catheter was positioned in the superior vena cava. Blood aspirated freely from the port at the end of the procedure. TECHNIQUE: After adequate general anesthesia, patient in supine position, the subclavian areas were prepped and draped in a sterile fashion with Oleg solution. Right subclavian vein was aspirated, a J wire introduced. It passed easily without resistance. Position of the wire in the superior vena cava was confirmed with fluoroscopy. An incision was then made in the deltopectoral groove with the wire exiting through the wound. A subcutaneous pocket was created in the inferior portion of the wound. A peel-away introducing sheath and dilator was passed over the guide wire, and the catheter which had been flushed with heparinized saline was passed through the sheath and positioned in the superior vena cava under fluoroscopy. Catheter was aspirated, found to aspirate blood freely. It was then cut to the appropriate length and connected to the subcutaneous port, which had also been flushed with heparinized saline. The port was then placed into the subcutaneous pocket and held in the pocket with sutures of 2-0 Ethibond. The entire port and catheter was inspected with fluoroscopy. There were no kinks, and the catheter tip was seen to be in the superior vena cava. The wound was inspected for hemostasis, which was seen to be adequate. The wound was then closed with 3-0 Vicryl for subcutaneous tissue and 4-0 Vicryl subcuticular to the skin. The port was accessed percutaneously with a Rose needle, found to aspirate blood freely. It was then flushed with heparinized saline, and the needle was removed. Dermabond was then applied to the wound. The patient tolerated the procedure well. Estimated blood loss was less than 5 mL. There were no complications. All counts were correct. Patient was taken to the recovery room in satisfactory condition. Job#: [id number] EV
--- NOTE | 2018-06-09 14:28 | Diagnostic Imaging Report ---
EXAMINATION: CHEST SINGLE (PORTABLE) INDICATION: \S\line placement \[id number] \S\[id number] COMPARISON: Chest radiograph 03/17/2018 FINDINGS: AP view TUBES and LINES: Interval placement of a right-sided chest port with tip overlying the lower SVC. LUNGS: Lungs are well inflated. Stable mild bibasilar scarring. There is no evidence of pneumonia or pulmonary edema. PLEURA: No pleural effusion or pneumothorax. HEART AND MEDIASTINUM: The cardiomediastinal silhouette is unremarkable. BONES AND SOFT TISSUES: No acute osseous lesion. Soft tissues are unremarkable. UPPER ABDOMEN: No free air under the diaphragm. IMPRESSION: Right-sided chest port with tip overlying the lower SVC. No pneumothorax. Stable mild bibasilar scarring. Signed by: Dr. Esme Dubon M.D. on 06/09/2018 2:24 PM
[2018-06-09 14:30] VITALS: BP 142/80
== END | disposition home or self-care (01) ==
LOC: OR 10:37
PROVIDERS: ATTEND Surgery
DX: C50.912 Malignant neoplasm of unspecified site of left female breast (principal); G43.909 Migraine, unspecified, not intractable, without status migrainosus; J45.909 Unspecified asthma, uncomplicated; K21.9 Gastro-esophageal reflux disease without esophagitis; R07.9 Chest pain, unspecified; Z88.6 Allergy status to analgesic agent; Z88.3 Allergy status to other anti-infective agents; Z01.812 Encounter for preprocedural laboratory examination
CPT/HCPCS: 36415; 36561; 71045; 77001; 85025; C1751; J1100; J1644; J1885; J2001; J2250; J2270; J2370; J2405; J3490

== ENCOUNTER → 2019-01-29 | Day surgery (SDC) | payer MEDICARE ==
[2019-01-26 14:19] LABS: BASOPHILS % 0.6 % (0.0-1.0); EOSINOPHILS # (AUTO) 0.1 (0.0-0.4); EOSINOPHILS % 3.2 % (0.0-6.0); HEMATOCRIT 38.5 % (34.2-44.1); HEMOGLOBIN 12.3 g/dL (12.0-16.0); LYMPHOCYTES # (AUTO) 0.9 (1.0-3.2); LYMPHOCYTES % 25.9 % (18.0-39.1); MEAN CORPUSCULAR HEMOGLOBIN 33.2 pg (28-32); MEAN CORPUSCULAR HGB CONC 31.9 g/dL (31-35); MEAN CORPUSCULAR VOLUME 103.8 fL (81-99); MONOCYTES # (AUTO) 0.5 (0.2-0.8); MONOCYTES % 13.2 % (4.4-11.3); NEUTROPHILS % 56.8 % (38.7-80.0); PLATELET COUNT 190 x10e3/uL (140-360); RED BLOOD COUNT 3.71 x10e6/uL (3.6-5.1); RED CELL DISTRIBUTION WIDTH 12.4 % (11.7-14.4)
[~2019-01-29] MED LIST changes: +ALIGN4 MG PO; +ALLEGRA ALLERG180 MG PO; +ALPRAZOLAM0.25 MG PO; +ASCORBIC ACID500 M2 PO; +BENADRYL25 M1 PO; -CEFAZOLIN SOD 2 GM/D5W 50ML 50 ML IV ONE; +CENTRUM SILVER1 EAC3 PO; +CYMBALTA30 MG PO; -DEXAMETHASONE SOD PHOS INJ 4 MG/ML VIAL ONE; -FENTANYL CITRATE/PF 100MCG/2 ML INJ ONE; +GAS-X62.5 MG PO; +GINKGO BILOBA120 MG PO; +GINSENG100 MG PO; -GLYCOPYRROLATE INJ 1MG/ 5 ML SYR ONE; -HEPARIN SOD (PORCINE) 1000 UNIT/ML SDV ONE; +IB GUARD PO; -KETOROLAC TROMETHAMINE 30 MG/ML VIAL ONE; -LIDOCAINE HCL 1% LOCAL INJ 20 ML VIAL ONE; -LIDOCAINE HCL 2% LOCAL INJ 5 ML SDV VIAL INJ ONE; +LIDOCAINE100 MG/53 TOP; -MORPHINE SULFATE 2 MG/ML SYR ONE; -ONDANSETRON HCL INJ 2 MG/ML VIAL ONE; +ONDANSETRON HCL INJ 2MG/ML 2ML 2 MG/ML VIAL ONE; -PHENYLEPHRINE HCL 1% 10 MG/ML VIAL ONE; +PROCHLORPERAZINE5 MG PO; -SEVOFLURANE INHAL SOLN 250 ML PEN BTL ONE; -SODIUM CHLORIDE 0.9% 100 ML 100 ML ONE; +TRAMADOL HCL100 M1 PEG; +VITAMIN D1000 UNI1 PO; +VITAMIN E400 UNI1 PO; +ZOFRAN4 MG PO
--- OUTSIDE RECORDS SUMMARY | 2019-01-29 08:35 | XMS REPORT | Clinical Summary ---
Author Author [facility] Address Unknown Phone Unavailable Care Team Providers Care Editorial Clerk Name Role Phone Zach Grayson PCP Allergies Comments Active Allergy Reactions Severity Noted Date Clindamycin Nausea And 09/27/2017 Vomiting Codeine Nausea And 09/27/2017 Vomiting Medications End Date Status Medication Sig Dispensed Refills Start Date Active esomeprazole (NEXIUM) 20 Take 40 mg by 0 MG capsule mouth 2 (two) times daily . Active dicyclomine (BENTYL) 10 Take 10 mg by 0 MG capsule mouth 4 (four) times daily before meals and nightly. Active metoclopramide HCl Take 10 mg by 0 (REGLAN) 10 MG tablet mouth 4 (four) times daily as needed for Nausea. Active sucralfate (CARAFATE) 1 Take 1 g by 0 gram tablet mouth 4 (four) times daily. Active promethazine (PHENERGAN) Take 25 mg by 0 25 MG tablet mouth every 6 (six) hours as needed for Nausea. Active sertraline (ZOLOFT) 50 MG Take 50 mg by 0 tablet mouth nightly. Active gabapentin (NEURONTIN) Take 100 mg 0 100 MG capsule by mouth nightly. Active ondansetron (ZOFRAN) 8 MG Take by mouth 0 tablet every 8 (eight) hours as needed for Nausea. Active diphenoxylate-atropine Take 1 tablet 0 (LOMOTIL) 2.5-0.025 mg by mouth 4 per tablet (four) times daily as needed for Diarrhea. Active topiramate (TOPAMAX) 25 Take 25 mg by 0 MG capsule mouth 2 (two) times daily as needed. Active Problems Not on file Social History Date Tobacco Use Types Packs/Day Years Used Never Smoker Smokeless Tobacco: Never Used Alcohol Use Drinks/Week oz/Week Comments No Sex Assigned at Date Recorded Not on file Industry Job Start Date Occupation Not on file Not on file Not on file Travel End Travel History Travel Start No recent travel history available. Last Filed Vital Signs Not on file Plan of Treatment Not on file Results Not on fileafter 01/28/2018 Insurance Payer Benefit Subscriber ID Type Phone Address Plan / Group MEDICARE MEDICARE A xxxxxxxxxx Medicare B
[2019-01-29 12:05] VITALS: BP 107/66
--- NOTE | 2019-01-29 15:38 | Operative Report ---
DATE OF PROCEDURE: 01/29/2019 SURGEON: Olegario Key MD PROCEDURE: Esophagogastroduodenoscopy with biopsies and esophageal dilatation. INDICATIONS FOR EGD: Dysphagia. MEDICATIONS: The patient was done under MAC, please see anesthesiologist's note. PROCEDURE IN DETAIL: With the patient in left lateral decubitus position, flexible fiberoptic Olympus gastroscope was introduced into the esophagus under direct visualization without any difficulty. There was some patchy erythema noted in distal esophagus. A minute tongue of velvety red mucosa was noted to extend proximally from the GE junction. Biopsies were obtained to rule out Mendoza. Esophagus was then dilated to size 52-Armenian Quintero. The scope was then advanced with ease into the stomach. Mucosa overlying the antrum and the body revealed some patchy erythema. The pylorus was of normal contour and shape, it was intubated with ease and the scope was advanced all the way to the second portion of the duodenum. The scope was then withdrawn slowly and mucosa overlying the proximal second portion and the duodenal bulb appeared to be within normal limits. The scope was then withdrawn back into the stomach and retroflexed. Mucosa overlying the fundus was partially visualized due to retained undigested food in the fundus. Whatever was visualized appears to be grossly within normal limits. An intact Tasneem fundoplication was also noted. The scope was then straightened out, it was subsequently withdrawn. The patient tolerated the procedure well. IMPRESSION: 1. Mild distal esophagitis. 2. Rule out Mendoza esophagus. 3. Esophagus dilated to size 52-Armenian Quintero. 4. Status post Tasneem fundoplication intact. 5. Retained undigested food in the fundus. 6. Gastritis, mild. PLAN: Follow up histology. Continue Nexium 40 mg one p.o. before meals b.i.d., Carafate 1 g p.o. a.c. t.i.d. and at bedtime. Olegario Key MD [facility] [place]L /[id number] cc: Zach Grayson MD
== END | disposition home or self-care (01) ==
LOC: OR 08:33
PROVIDERS: ATTEND Internal Medicine Gastroenterology
DX: K20.8 Other esophagitis (principal); K29.70 Gastritis, unspecified, without bleeding; K31.89 Other diseases of stomach and duodenum; K21.9 Gastro-esophageal reflux disease without esophagitis; K52.89 Other specified noninfective gastroenteritis and colitis; K64.8 Other hemorrhoids; Z98.890 Other specified postprocedural states; R00.0 Tachycardia, unspecified; Z01.810 Encounter for preprocedural cardiovascular examination; Z01.812 Encounter for preprocedural laboratory examination; Z88.6 Allergy status to analgesic agent; Z88.1 Allergy status to other antibiotic agents; Z85.3 Personal history of malignant neoplasm of breast; Z92.21 Personal history of antineoplastic chemotherapy; Z92.3 Personal history of irradiation; Z90.10 Acquired absence of unspecified breast and nipple; Z90.49 Acquired absence of other specified parts of digestive tract; Z96.642 Presence of left artificial hip joint; Z96.652 Presence of left artificial knee joint; Z80.0 Family history of malignant neoplasm of digestive organs
CPT/HCPCS: 36415; 43239; 43450; 85025; 88305; 93005; J2250; J2405; J2704

== ENCOUNTER → 2019-02-23 | Day surgery (SDC) | payer MEDICARE ==
[~2019-02-23] MED LIST changes: +BUPIVACAINE 0.5%/EPI 30 ML SDV INJ ONE; +DEXAMETHASONE SOD PHOS INJ 4 MG/ML VIAL ONE; +FENTANYL CITRATE/PF 100MCG/2 ML INJ ONE; +LIDOCAINE HCL 1% LOCAL INJ 20 ML VIAL ONE; +LIDOCAINE HCL 2% LOCAL INJ 5 ML SDV VIAL INJ ONE; +METOCLOPRAMIDE HCL 10 MG/2ML VIAL ONE; -MIDAZOLAM HCL 2 MG/2 ML VIAL ONE; +MORPHINE SULFATE INJ 4 MG/ML INJ 1ML ONE; +PRIMIDONE PEG; +SEVOFLURANE INHAL SOLN 250 ML PEN BTL ONE
--- OUTSIDE RECORDS SUMMARY | 2019-02-23 10:39 | XMS REPORT | Clinical Summary ---
Author Author [facility] Address Unknown Phone Unavailable Care Team Providers Care Public Address Servicer Name Role Phone Zach Grayson PCP Allergies [...] Not on file Results Not on fileafter 02/22/2018 Insurance Payer Benefit Subscriber ID Type Phone Address Plan / Group MEDICARE MEDICARE A xxxxxxxxxx Medicare B
[2019-02-23 14:19] VITALS: BP 122/69
--- NOTE | 2019-02-23 20:44 | Operative Report ---
DATE OF PROCEDURE: 02/23/2019 SURGEON: Chuck Sosa MD PREOPERATIVE DIAGNOSIS: Carcinoma of breast, status post chemotherapy. POSTOPERATIVE DIAGNOSIS: Carcinoma of breast, status post chemotherapy. PROCEDURE: Removal of right subclavian vein and subcutaneous venous access port. MILLING MACHINIST: None. ANESTHESIA: General. INDICATIONS AND FINDINGS: The patient is a 63-year-old female, who has carcinoma of the breast, which was treated with chemotherapy. She has now finished treatment. Surgery, the port and catheter are removed intact. TECHNIQUE: After adequate general anesthesia with the patient in supine position, the right subclavian area was prepped and draped in a sterile fashion with ChloraPrep solution. Going through the previous incision, incision was made carried down through subcutaneous tissue, the catheter was seen towards the subcutaneous tissues, dissected free, delivered up into the wound. The port and catheter were then removed intact. Hemostasis was seen to be adequate. A suture of 3-0 Vicryl was placed across the subcutaneous tunnel exiting toward the vein. The wounds were infiltrated with 0.5% Marcaine and then closed with 3-0 Vicryl subcutaneous tissue and 4-0 Vicryl subcuticular to the skin. Dermabond and sterile dressing were applied. The patient tolerated the procedure well. Estimated blood loss was less than 5 mL. There were no complications. All counts were correct. The patient was taken to recovery room in satisfactory condition. Chuck Sosa MD [facility] /[id number]
== END | disposition home or self-care (01) ==
LOC: OR 10:36
PROVIDERS: ATTEND Surgery
DX: Z45.2 Encounter for adjustment and management of vascular access device (principal); C50.919 Malignant neoplasm of unspecified site of unspecified female breast; Z01.812 Encounter for preprocedural laboratory examination; Z88.1 Allergy status to other antibiotic agents; Z88.5 Allergy status to narcotic agent; Z80.51 Family history of malignant neoplasm of kidney; Z80.1 Family history of malignant neoplasm of trachea, bronchus and lung; Z82.49 Family history of ischemic heart disease and other diseases of the circulatory system; Z96.652 Presence of left artificial knee joint; Z95.828 Presence of other vascular implants and grafts
CPT/HCPCS: 36590; J1100; J2001; J2270; J2405; J2704; J2765

== ENCOUNTER → 2019-11-23 | Day surgery (SDC) | payer MEDICARE ==
[~2019-11-23] MED LIST changes: +ACETAMINOPHEN 1000 MG/100 ML 100 ML IV ONE; -BUPIVACAINE 0.5%/EPI 30 ML SDV INJ ONE; -DEXAMETHASONE SOD PHOS INJ 4 MG/ML VIAL ONE; -FENTANYL CITRATE/PF 100MCG/2 ML INJ ONE; +GLUCAGON FOR INJ 1 MG VIAL ONE; +HYOSCYAMINE 0.125 MG TAB ONE; -LIDOCAINE HCL 1% LOCAL INJ 20 ML VIAL ONE; +MIDAZOLAM HCL 2 MG/2 ML VIAL ONE; -MORPHINE SULFATE INJ 4 MG/ML INJ 1ML ONE; +NARATRIPTAN HC2.5 MG PO; -PRIMIDONE PEG; +PRIMIDONE PO; -PROPOFOL IV EMULSION 10 MG/ML 20 ML VIAL ONE; -SEVOFLURANE INHAL SOLN 250 ML PEN BTL ONE
[2019-11-23 08:58] LABS: WBC,FECAL (FECAL LACTOFERRIN) NEGATIVE (NEGATIVE)
[2019-11-23 09:20] VITALS: BP 106/54
[2019-11-23 14:37] LABS: C DIFFICILE TOXIN A&B AMP PROB NEGATIVE (NEGATIVE)
--- NOTE | 2019-11-23 16:20 | Operative Report ---
DATE OF PROCEDURE: 11/23/2019 SURGEON: Olegario Key MD PROCEDURE: Colonoscopy with polypectomy and biopsies. INDICATIONS FOR COLONOSCOPY: Colorectal cancer screening, diarrhea. MEDICATIONS: The patient was done under MAC. Please see anesthesiologist's note. PROCEDURE IN DETAIL: With the patient in left lateral decubitus position, flexible fiberoptic Olympus colonoscope was inserted into the rectum with ease and advanced all the way to the cecum. Mucosa overlying the cecum appeared to be within normal limits. The ileocecal valve was intubated and the scope was advanced into the terminal ileum. Biopsies were obtained. The scope was then withdrawn back into the colon. It was then withdrawn slowly. Mucosa overlying the ascending, transverse, descending, sigmoid, and rectum revealed some patchy mild inflammatory changes. Multiple random biopsies were obtained. An approximately 1 cm sessile polyp was hot snared from the descending colon. The scope was then retroflexed into the distal rectum and small internal hemorrhoids were noted, none of which was actively bleeding. The scope was then straightened out, it was subsequently withdrawn after securing an adequate stool specimen that was sent for the appropriate stool studies. The patient tolerated the procedure well. IMPRESSION: 1. Repeat diffuse colitis, patchy, mild, multiple random biopsies were obtained. 2. Descending colon polyp removed per snare electrocautery. 3. Proctitis, mild, biopsied. 4. Internal hemorrhoids, none actively bleeding. PLAN: Follow up histology. Follow up stool studies. Check IBD panel, CRP, and sedimentation rate. The patient might benefit from a followup colonoscopy in 5 years. Olegario Key MD [facility]ZZIE /[id number] cc: Zach Grayson MD
== END | disposition home or self-care (01) ==
LOC: ENDO 05:35
PROVIDERS: ATTEND Internal Medicine Gastroenterology
DX: K20.8 Other esophagitis (principal); K29.60 Other gastritis without bleeding; Z88.1 Allergy status to other antibiotic agents; Z88.5 Allergy status to narcotic agent; K63.5 Polyp of colon; K62.89 Other specified diseases of anus and rectum; K64.8 Other hemorrhoids; Z01.812 Encounter for preprocedural laboratory examination; Z85.3 Personal history of malignant neoplasm of breast; I95.9 Hypotension, unspecified; G25.0 Essential tremor
CPT/HCPCS: 36415; 45380; 45385; 83630; 83993; 85651; 86140; 86256; 86671; 87045; 87177; 87328; 87493; J0131; J1610; J2001; J2250; J2405; J2765; 45378

== ENCOUNTER → 2021-07-29 | Outpatient (CLI) | payer MEDICARE ==
[~2021-07-29] MED LIST changes: -ACETAMINOPHEN 1000 MG/100 ML 100 ML IV ONE; -GLUCAGON FOR INJ 1 MG VIAL ONE; -HYOSCYAMINE 0.125 MG TAB ONE; -LIDOCAINE HCL 2% LOCAL INJ 5 ML SDV VIAL INJ ONE; -METOCLOPRAMIDE HCL 10 MG/2ML VIAL ONE; -MIDAZOLAM HCL 2 MG/2 ML VIAL ONE; -ONDANSETRON HCL INJ 2MG/ML 2ML 2 MG/ML VIAL ONE
== END ==
LOC: DX 09:31
PROVIDERS: ATTEND Internal Medicine Gastroenterology
DX: R10.13 Epigastric pain (principal); R13.10 Dysphagia, unspecified
CPT/HCPCS: 74246; U0002

== ENCOUNTER 2025-06-01 10:17 | Emergency (ER) | payer MEDICARE ==
[~2025-06-01] VITALS: Ht 167.6 cm; Wt 79.8 kg
[2025-06-01 10:39] VITALS: TEMP 99
[2025-06-01 10:42] LABS: BASOPHILS % 0.2 % (0.0-1.0); EOSINOPHILS % 0.3 % (0.0-6.0); LYMPHOCYTES % 28.8 % (18.0-39.1); MONOCYTES % 8.9 % (4.4-11.3); NEUTROPHILS % 61.6 % (38.7-80.0); RED CELL DISTRIBUTION WIDTH 12.4 % (11.7-14.4)
[2025-06-01 10:52] LABS: LEUKOCYTE ESTERASE ,URINE SMALL (NEGATIVE); PROTEIN,URINE DIPSTICK NEGATIVE (NEGATIVE); URINE UROBILINOGEN 0.2 mg/dL (0.2 - 1)
[2025-06-01] MEDS: Morphine 4mg INJECTION 4 MG/ML INJ IV ONE (10:53)
[2025-06-01] MEDS: ONDANSETRON HCL INJ 2MG/ML 2ML 2 MG/ML VIAL IV STA (10:53)
[2025-06-01] MEDS: SODIUM CHLORIDE 0.9% 1000ML 1,000 ML IV ONE (10:53)
[2025-06-01 11:04] LABS: EST GLOMERULAR FILTRATION RATE 86.0 ML/MIN (>=60)
[2025-06-01 11:05] LABS: EPITHELIAL CELLS,URINE MODERATE /LPF
[2025-06-01] MEDS ORDERED: IOPAMIDOL 370 MG/ML 100 ML INFUS..BTL INJ ONE (11:18)
[2025-06-01 11:50] VITALS: PULSE 81; RESP 16
[2025-06-01] MEDS ORDERED: CEPHALEXIN500 MG PO (12:33)
[2025-06-01] MEDS: KETOROLAC TROMETHAMINE 30 MG/ML VIAL IV STA (12:33)
[2025-06-01] MEDS ORDERED: ONDANSETRON ODT4 MG PO (12:33)
[2025-06-01 12:48] VITALS: BP 135/64; PULSE 88; RESP 16; TEMP 97.5; O2SAT 99
== END 2025-06-01 12:37 | disposition home or self-care (01) ==
LOC: ER 10:24
DX: R10.11 Right upper quadrant pain (principal); R11.0 Nausea; K21.9 Gastro-esophageal reflux disease without esophagitis; G62.9 Polyneuropathy, unspecified; Z87.19 Personal history of other diseases of the digestive system; Z96.642 Presence of left artificial hip joint; Z96.652 Presence of left artificial knee joint
CPT/HCPCS: 36415; 74177; 80053; 81001; 83690; 85025; 87086; 93005; 99284; J1885; J2270; J2405; J7030; Q9967